=== PATIENT | male | born 1995 | race Caucasian/White ===

== ENCOUNTER 2022-05-23 11:41 | Emergency (ER) | payer MEDICAID ==
[~2022-05-23] VITALS: Ht 172.7 cm; Wt 97.5 kg
--- NOTE | 2022-05-23 11:51 | NUR ---
BIBS C/O CONGESTION X 2 DAYS +"GREEN MUCUS WHEN COUGHING". AMBULATORY, PLACED ON BED, BREATHING EVEN AND UNLABORED.
--- NOTE | 2022-05-23 12:10 | NUR ---
[facility] FOR COVID19 SENT [facility]
[2022-05-23] MEDS ORDERED: BENZ-13 PO (13:53)
--- NOTE | 2022-05-23 14:10 | NUR ---
Patient discharged to home in stable condition. Written and verbal after care instructions given. Patient verbalizes understanding of instruction.
[2022-05-23 14:16] VITALS: BP 135/80
== END 2022-05-23 14:10 | disposition home or self-care (01) ==
LOC: ER 11:48
DX: U07.1 COVID-19 (principal); R07.9 Chest pain, unspecified; R03.0 Elevated blood-pressure reading, without diagnosis of hypertension
CPT/HCPCS: 99285; 71045; 87426; 93005; C9803

== ENCOUNTER 2024-11-08 16:08 | Emergency (ER) | payer MEDICAID ==
[~2024-11-08] VITALS: Ht 172.7 cm; Wt 88.9 kg
[~2024-11-08 16:08] MED LIST: BENZ-13 PO
[2024-11-08 16:27] VITALS: BP 132/62; TEMP 97.9; O2SAT 99
[2024-11-08] MEDS ORDERED: IBUP-1955 PO (18:07)
== END 2024-11-08 18:30 | disposition home or self-care (01) ==
LOC: ER 16:24
DX: M25.572 Pain in left ankle and joints of left foot (principal)
CPT/HCPCS: 73610-TC; 73630-TC